=== PATIENT | female | born 1990 | race Hispanic/Latino ===

== ENCOUNTER 2021-08-10 10:35 | Observation (INO) | payer MEDICAID ==
[~2021-08-10] VITALS: Ht 165.1 cm; Wt 90.7 kg
[2021-08-10 10:38] VITALS: BP 112/79
[2021-08-10] MEDS: LACTATED RINGERS 1000ML IV SCH ×2 (11:20→12:20)
[2021-08-10 11:56] LABS: APPEARANCE,URINE CLEAR (CLEAR); BILIRUBIN,URINE NEGATIVE (NEGATIVE); COLOR,URINE DARK YELLOW (YELLOW); GLUCOSE, URINE (UA) NEGATIVE (NEGATIVE); KETONES,URINE 40 mg/dL (NEGATIVE); LEUKOCYTE ESTERASE ,URINE NEGATIVE (NEGATIVE); NITRATE,URINE NEGATIVE (NEGATIVE); OCCULT BLOOD,URINE NEGATIVE (NEGATIVE); PROTEIN,URINE NEGATIVE (NEGATIVE)
[2021-08-10 12:13] LABS: RBC,URINE 0-1 /HPF (0-1)
[2021-08-10 12:14] LABS: BACTERIA,URINE Few /HPF (None Seen); MUCUS,URINE Moderate LPF (None Seen); SQUAMOUS EPITHELIAL CELL,UR Rare /HPF (0-2)
== END 2021-08-10 13:20 | disposition home or self-care (01) ==
LOC: EDH 11:03 → LDH 11:09
PROVIDERS: ADMIT Obstetrics & Gynecology; ATTEND Obstetrics & Gynecology
DX: O62.9 Abnormality of forces of labor, unspecified (principal); O21.2 Late vomiting of pregnancy; Z3A.27 27 weeks gestation of pregnancy
CPT/HCPCS: 59025; 81001; 96360; 96361; G0378 ×2; G0379

== ENCOUNTER 2021-10-22 10:11 | Observation (INO) | payer MEDICAID ==
[~2021-10-22] VITALS: Ht 165.1 cm; Wt 93.4 kg
[2021-10-22] MEDS ORDERED: LACTATED RINGERS 1000ML 1,000 ML IV SCH (11:00)
[2021-10-22] MEDS ORDERED: TERBUTALINE SULFATE VIAL 1MG/ML SQ PRN (11:00)
[2021-10-22 11:13] LABS: APPEARANCE,URINE CLEAR (CLEAR); BILIRUBIN,URINE NEGATIVE (NEGATIVE); COLOR,URINE YELLOW (YELLOW); GLUCOSE, URINE (UA) NEGATIVE (NEGATIVE); KETONES,URINE NEGATIVE (NEGATIVE); LEUKOCYTE ESTERASE ,URINE TRACE (NEGATIVE); NITRATE,URINE NEGATIVE (NEGATIVE); OCCULT BLOOD,URINE NEGATIVE (NEGATIVE); PH,URINE 6.5 (5.0-8.0); PROTEIN,URINE NEGATIVE (NEGATIVE)
[2021-10-22 11:20] LABS: BACTERIA,URINE Moderate /HPF (None Seen); MUCUS,URINE Few LPF (None Seen); RBC,URINE 0-1 /HPF (0-1); SQUAMOUS EPITHELIAL CELL,UR Few /HPF (0-2)
== END 2021-10-22 13:44 | disposition home or self-care (01) ==
LOC: LDH 10:11
PROVIDERS: ADMIT Obstetrics & Gynecology; ATTEND Obstetrics & Gynecology
DX: O26.893 Other specified pregnancy related conditions, third trimester (principal); R10.9 Unspecified abdominal pain; R11.0 Nausea; Z3A.38 38 weeks gestation of pregnancy
CPT/HCPCS: 81001; 87088; 96360; 96361; G0378 ×4; G0379; J7120

== ENCOUNTER 2021-10-24 14:00 | Inpatient (IN) | payer MEDICAID ==
[~2021-10-24] VITALS: Ht 165.1 cm; Wt 93.9 kg
[2021-10-27] MEDS ORDERED: LACTATED RINGERS 1000ML 1,000 ML IV SCH (05:30)
[2021-10-27] MEDS ORDERED: CEFAZOLIN SODIUM 1 GM VIAL IVP PRN (05:30)
[2021-10-27] MEDS ORDERED: CALDOLOR 800MG+NS 250ML 250 ML IV PRN (05:30)
[2021-10-27 05:43] LABS: HEMATOCRIT 37.7 % (36-48); MEAN CORPUSCULAR HEMOGLOBIN 31.9 pg (27.0-33.0); MEAN CORPUSCULAR HGB CONC 33.2 g/dL (32.0-36.0); MEAN CORPUSCULAR VOLUME 96.2 fL (79-99); RED BLOOD CELL COUNT(AUTO) 3.92 MIL/uL (4.00-5.50); RED CELL DISTRIBUTION WIDTH 13.2 % (11.0-15.5); WHITE BLOOD COUNT (AUTO) 6.6 K/uL (4.8-10.8)
[2021-10-27 05:59] LABS: APPEARANCE,URINE CLEAR (CLEAR); BILIRUBIN,URINE SMALL (NEGATIVE); COLOR,URINE YELLOW (YELLOW); GLUCOSE, URINE (UA) NEGATIVE (NEGATIVE); KETONES,URINE 40 mg/dL (NEGATIVE); LEUKOCYTE ESTERASE ,URINE LARGE (NEGATIVE); NITRATE,URINE NEGATIVE (NEGATIVE); OCCULT BLOOD,URINE NEGATIVE (NEGATIVE); PROTEIN,URINE NEGATIVE (NEGATIVE); UROBILINOGEN,URINE 0.2 mg/dL (0.2-1.0)
[2021-10-27 06:01] LABS: RBC,URINE None Seen /HPF (0-1)
[2021-10-27 06:02] LABS: AMORPHOUS SEDIMENT,UR Many /LPF (None Seen); BACTERIA,URINE Many /HPF (None Seen); SQUAMOUS EPITHELIAL CELL,UR Moderate /HPF (0-2)
[2021-10-27 06:15] VITALS: BP 119/75
[2021-10-27] MEDS ORDERED: PREN1TAB26 PO (06:19)
[2021-10-27] MEDS ORDERED: MORPHINE PF 100MG/10ML AMP IV ONE (07:20)
[2021-10-27] MEDS ORDERED: FENTANYL CITRATE PF 50 MCG/1 ML 2ML VIAL ONE (07:21)
[2021-10-27] MEDS ORDERED: ONDANSETRON 4MG INJ ONE ×2 (08:05→08:52)
[2021-10-27] MEDS ORDERED: MIDAZOLAM HCL 1 MG/ML 2ML VIAL ONE (08:09)
[2021-10-27] MEDS ORDERED: METOCLOPRAMIDE 10 MG/2 ML VIAL ONE (08:43)
[2021-10-27] MEDS ORDERED: PHENYLEPHRINE HCL 10 MG/ML 1ML VIAL IV ONE (08:43)
[2021-10-27] MEDS ORDERED: DiphenhydrAMINE HCL 50 MG/ML VIAL IVP PRN (09:00)
[2021-10-27] MEDS ORDERED: ONDANSETRON 4MG INJ IVP PRN (09:00)
[2021-10-27] MEDS ORDERED: NALOXONE HCL 0.4 MG/1 ML ML IVP PRN (09:00)
[2021-10-27] MEDS ORDERED: LORATADINE 10 MG TABLET PO PRN (09:00)
[2021-10-27] MEDS ORDERED: EPHEDRINE SULFATE 50 MG/ML AMPULE IVP PRN (09:00)
[2021-10-27] MEDS ORDERED: OXYTOCIN-LR 20 UNITS/1000 ML 1,000 ML IV PRN (09:30)
[2021-10-27] MEDS ORDERED: PROMETHAZINE HCL 25 MG/ML 1ML AMPULE IM PRN (09:30)
[2021-10-27] MEDS ORDERED: 0.9%NACL 10ML VIAL IVP PRN (09:30)
[2021-10-27] MEDS ORDERED: MEPERIDINE-PF 75 MG/ML SYG IM PRN (09:30)
[2021-10-27] MEDS ORDERED: PROMETHAZINE HCL 25 MG/ML 1ML AMPULE IM SCH (09:30)
[2021-10-27 10:50] VITALS: BP 126/82
[2021-10-27] MEDS: DEXTROSE 5 %-0.45 % NACL 1,000 ML IV PRN (15:53)
[2021-10-27 16:04] VITALS: BP 120/78
[2021-10-27] MEDS: CALDOLOR 800MG+NS 250ML 250 ML IV SCH (17:18)
[2021-10-27 19:50] VITALS: BP 118/83
[2021-10-27 23:18] VITALS: BP 122/66
[2021-10-27] MEDS: ACETAMINOPHEN WITH CODEINE 1 TAB TAB PO PRN (23:28)
[2021-10-28] MEDS: DEXTROSE 5 %-0.45 % NACL 1,000 ML IV PRN (01:01)
[2021-10-28] MEDS: CALDOLOR 800MG+NS 250ML 250 ML IV SCH (01:02)
[2021-10-28 03:07] VITALS: BP 123/67
[2021-10-28] MEDS: ACETAMINOPHEN WITH CODEINE 1 TAB TAB PO PRN ×3 (05:52→14:04)
[2021-10-28 06:49] LABS: MEAN CORPUSCULAR HEMOGLOBIN 32.1 pg (27.0-33.0); MEAN CORPUSCULAR HGB CONC 32.9 g/dL (32.0-36.0); MEAN CORPUSCULAR VOLUME 97.4 fL (79-99); RED BLOOD CELL COUNT(AUTO) 3.49 MIL/uL (4.00-5.50); RED CELL DISTRIBUTION WIDTH 13.1 % (11.0-15.5); WHITE BLOOD COUNT (AUTO) 10.5 K/uL (4.8-10.8)
[2021-10-28 07:57] VITALS: BP 108/75
[2021-10-28] MEDS ORDERED: ACETAMINOPHEN 500 MG TABLET PO PRN (08:30)
[2021-10-28] MEDS ORDERED: BISACODYL 10 MG SUPP.RECT RC PRN (08:30)
[2021-10-28] MEDS ORDERED: LANOLIN 30GM OINTMENT TP PRN (08:30)
[2021-10-28] MEDS: IBUPROFEN 800 MG TAB PO SCH ×2 (08:53→16:31)
[2021-10-28] MEDS: DOCUSATE SODIUM 100 MG CAP PO SCH ×2 (08:53→21:07)
[2021-10-28] MEDS: SIMETHICONE 80 MG TAB.CHEW PO PRN ×3 (08:53→21:07)
[2021-10-28 10:55] VITALS: BP 117/75
[2021-10-28 16:21] VITALS: BP 115/70
[2021-10-28] MEDS: HYDROCODONE/ACETAMINOPHEN 5/325 MG TAB PO PRN ×2 (17:36→23:36)
[2021-10-28 19:30] VITALS: BP 107/68
[2021-10-28 23:30] VITALS: BP 105/67
[2021-10-29] MEDS: IBUPROFEN 800 MG TAB PO SCH ×2 (01:00→08:29)
[2021-10-29 04:37] VITALS: BP 113/70
[2021-10-29] MEDS: HYDROCODONE/ACETAMINOPHEN 5/325 MG TAB PO PRN (06:04)
[2021-10-29 08:07] VITALS: BP 119/79
[2021-10-29] MEDS: DOCUSATE SODIUM 100 MG CAP PO SCH (08:29)
[2021-10-29] MEDS: SIMETHICONE 80 MG TAB.CHEW PO PRN (08:29)
== END 2021-10-29 10:40 | disposition home or self-care (01) | DRG 540 ==
LOC: LDH 10-27 04:57 → WSH 10-27 10:45
PROVIDERS: ADMIT Obstetrics & Gynecology; ATTEND Obstetrics & Gynecology
PROC: 10D00Z1 Extraction of Products of Conception, Low, Open Approach (ICD-10-PCS; principal; 2021-10-27 07:30)
DX: O34.211 Maternal care for low transverse scar from previous cesarean delivery (principal); K66.0 Peritoneal adhesions (postprocedural) (postinfection); Z37.0 Single live birth; Z3A.39 39 weeks gestation of pregnancy; O99.62 Diseases of the digestive system complicating childbirth
CPT/HCPCS: 36415; 59510; 81001; 85027; 86592; 86850; 86900; 86901; 87088; 87340; 87426; A4344; G0378; J0690; J1741; J2250; J2274; J2370; J2405; J2765; J3010; J7120